=== PATIENT | female | born 1955 | race Two or more races ===

== ENCOUNTER 2021-04-16 07:17 | Day surgery (SDC) | payer OTHER ==
[~2021-04-16 07:17] MED LIST: TYLENOL PM PO
[2021-04-16] MEDS ORDERED: PERCOCET 5-3251 EACH PO (13:15)
[2021-04-16] MEDS ORDERED: RECTICARE30 GM TOP (13:15)
== END 2021-04-16 15:20 | disposition home or self-care (01) ==
LOC: CIR.AMB 07:17
PROVIDERS: ATTEND Surgery
DX: A63.0 Anogenital (venereal) warts (principal); Z20.822 Contact with and (suspected) exposure to COVID-19